=== PATIENT | female | born 1970 | race Hispanic/Latino ===

== ENCOUNTER 2016-11-16 16:18 | Emergency (ER) | payer OTHER ==
[2016-11-16 16:50] VITALS: BMI 60.2
[2016-11-16 16:56] VITALS: TEMP 97.7
[2016-11-16] MEDS ORDERED: TDAP Vaccine 0.5 mL Syr IM ONE (17:13)
--- NOTE | 2016-11-16 17:38 | ED PDOC ---
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 Patient states yesterday while shopping she scraped her finger on a metal object. She reports this morning upon walking she felt weak and had a subjective fever with chills. Patient notes pain and swelling to the finger has decreased after taking Advil. She notes some nausea, chronic shortness of breath, and chronic lower extremity edema but denies any vomiting or any other complaints at this time. Time/Duration: 24 hours Symptom Onset: Sudden Symptom Course: Unchanged Quality: Other ("pain") Activities at Onset: Rest Modifying Factors (Text): better with Advil Context: Other Associated Symptoms (Text): patient has nausea, fever, and chills Past Medical History - Provider Review Nursing Documentation Reviewed: Yes - Infectious Disease Hx of Infectious Diseases: None - Cardiac Hx Hypertension: Yes - Pulmonary Hx Respiratory Disorders: No - Neurological Hx Neurological Disorder: No - HEENT Hx HEENT Disorder: No - Renal Hx Renal Disorder: No - Endocrine/Metabolic Hx Endocrine Disorders: No - Hematological/Oncological Hx Anemia: Yes - Integumentary Hx Dermatological Disorder: Yes Other/Comment: b/l lower extremity edema. - Musculoskeletal/Rheumatological Hx Musculoskeletal Disorders: No - Gastrointestinal Hx Gastrointestinal Disorders: No - Genitourinary/Gynecological Hx Genitourinary Disorders: No - Psychiatric Hx Psychophysiologic Disorder: No Hx Substance Use: No - Surgical History Other/Comment: B/LLE DVT, IVC filter, PE - Anesthesia Hx Anesthesia: No Hx Anesthesia Reactions: No Hx Malignant Hyperthermia: No Family/Social History - Physician Review Nursing Documentation Reviewed: Yes Family/Social History: Unknown Family HX Smoking Status: Former Smoker Hx Alcohol Use: No Hx Substance Use: No Allergies/Home Meds Allergies/Adverse Reactions: Allergies Penicillins Allergy (Verified 11/16/16 16:50) RASH Review of Systems - Physician Review All systems were reviewed & negative as marked: Yes - Review of Systems Constitutional: Fevers, Other (chills) Respiratory: SOB (chronic) Gastrointestinal: Nausea Musculoskeletal: Other (right hand middle finger pain and swelling) Physical Exam Vital Signs Reviewed: Yes Vital Signs Temp Pulse Resp BP Pulse Ox 11/16/16 16:51 97.7 F 89 19 133/76 97 Temperature: Afebrile Blood Pressure: Normal Pulse: Regular Respiratory Rate: Normal Appearance: Positive for: Well-Appearing, Non-Toxic, Comfortable, Other ( morbidly obese) Pain Distress: None Mental Status: Positive for: Alert and Oriented X 3 - Systems Exam Head: Present: Atraumatic, Normocephalic Pupils: Present: PERRL Conjunctiva: Present: Normal Mouth: Present: Moist Mucous Membranes Neck: Present: Normal Range of Motion Respiratory/Chest: Present: Clear to Auscultation, Good Air Exchange. No: Respiratory Distress, Accessory Muscle Use Cardiovascular: Present: Regular Rate and Rhythm, Normal S1, S2. No: Murmurs Abdomen: Present: Normal Bowel Sounds. No: Tenderness, Distention, Peritoneal Signs Back: Present: Normal Inspection Upper Extremity: Present: Normal ROM, NORMAL PULSES, Neurovascularly Intact. No : Cyanosis, Edema, Tenderness, Erythema, Temperature Abnormalties Lower Extremity: Present: Edema (lymphedema bilaterally) Neurological: Present: GCS=15, CN II-XII Intact, Speech Normal Skin: Present: Warm, Dry, Normal Color. No: Rashes Psychiatric: Present: Alert, Oriented x 3, Normal Insight, Normal Concentration Medical Decision Making ED Course and Treatment: 11/16/16 17:42 Impression: 46 year old female complains of middle finger pain of right hand. Differential Diagnosis included but are not limited to: fracture vs. musculoskeletal Plan: -- Right Hand X-ray -- Labs -- TDAP Vaccine -- Reassess and disposition Progress Notes: 11/16/16 19:22 Right hand x-ray: As read by me, no foreign body or fracture. 11/16/16 20:18 Patient with noted history. Vitals and labs are unremarkable. X-ray shows no FB or fx. Will give abx prophylaxis. Tetanus updated - ok for d/c. - Lab Interpretations Lab Results: 11/16/16 18:15 11/16/16 18:15 Lab Results 11/16/16 18:15: WBC 7.7, RBC 4.50, Hgb 12.3, Hct 37.9, MCV 84.2, MCH 27.3, MCHC 32.5, RDW 16.4 H, Plt Count 295, MPV 9.8, Gran % 77.7 H, Lymph % (Auto) 16.0 L, [place] % (Auto) 4.0, Eos % (Auto) 2.2, Baso % (Auto) 0.1, Gran # 5.97, Lymph # 1.2 , [place]eller # 0.3, Eos # 0.2, Baso # 0.01, Sodium 138, Potassium 4.3, Chloride 100, Carbon Dioxide 26, Anion Gap 16, BUN 13, Creatinine 0.7, Est GFR ( Amer) > 60, Est GFR (Non-Af Amer) > 60, Random Glucose 141 H, Calcium 9.7, Total Bilirubin 0.6, AST 36, ALT 38, Alkaline Phosphatase 124, Total Protein 8.6 H, Albumin 4.3, Globulin 4.2, Albumin/Globulin Ratio 1.0 L I have reviewed the lab results: Yes - RAD Interpretation Radiology Orders: 11/16/16 17:13 HAND RIGHT 3 VIEWS [RAD] Stat - Medication Orders Current Medication Orders: Discontinued Medications Tetanus/Reduced Diphtheria/Acell Pertussis (Boostrix Vaccine Inj) 0.5 ml IM .ONCE ONE Stop: 11/16/16 17:14 Last Admin: 11/16/16 18:18 Dose: 0.5 ML [facility] Immunization Data Document 11/16/16 18:18 HI (Rec: 11/16/16 18:18 HI [id number]) Immunization Data Vaccine Lot Number [id number] Vaccine Expiration Date 10/28/18 Site Given Right Arm - Scribe Statement The provider has reviewed the documentation as recorded by the Shantal Hawkins training under Joy Hanna All medical record entries made by the Shantal were at my direction and personally dictated by me. I have reviewed the chart and agree that the record accurately reflects my personal performance of the history, physical exam, medical decision making, and the department course for this patient. I have also personally directed, reviewed, and agree with the discharge instructions and disposition. Disposition/Present on Arrival - Present on Arrival Any Indicators Present on Arrival: No History of DVT/PE: No History of Uncontrolled Diabetes: No Urinary Catheter: No History of Decub. Ulcer: No History Surgical Site Infection Following: None - Disposition Have Diagnosis and Disposition been Completed?: Yes Diagnosis: Injury of right hand Disposition: HOME/ ROUTINE Disposition Time: 20:20 Patient Plan: Discharge Condition: GOOD Additional Instructions: Take the antibiotics as prescribed. Follow up with your primary care doctor. Return to the emergency department if any new concerning symptoms. Prescriptions: Loratadine [Claritin] 1 tab PO DAILY PRN #30 tab PRN Reason: Allergy Symptoms Azithromycin [Zithromax] 2 tab PO DAILY #6 tab Referrals: PCP,NO [Primary Care Provider] - Follow up with primary
[2016-11-16 18:24] LABS: ADD MANUAL DIFF? NO
[2016-11-16 18:40] LABS: ALKALINE PHOSPHATASE 124 U/L (38-133); ALT/SGPT 38 U/L (7-56); AST/SGOT 36 U/L (15-39); BILIRUBIN,TOTAL 0.6 mg/dL (0.2-1.3); BLOOD UREA NITROGEN 13 mg/dL (7-21); CALCIUM 9.7 mg/dL (8.4-10.5); CARBON DIOXIDE 26 mmol/L (21-33); CHLORIDE 100 mmol/L (98-107); GFR AFRICAN-AMERICAN > 60; GLUCOSE,RANDOM 141 mg/dL (70-110); POTASSIUM 4.3 mmol/L (3.6-5.0); SODIUM 138 mmol/L (132-148); TOTAL PROTEIN 8.6 g/dL (5.8-8.3)
[2016-11-16 19:07] LABS: BASO # 0.01 K/mm3 (0.0-2.0); BASO % 0.1 % (0.0-3.0); EOS # 0.2 (0.0-0.7); EOS % 2.2 % (1.5-5.0); GRAN # 5.97 (1.4-6.5); GRAN % 77.7 % (50.0-68.0); HEMATOCRIT 37.9 % (36.0-48.0); LYMPH # 1.2 (1.2-3.4); MEAN CELL VOLUME 84.2 fL (80.0-105.0); MEAN CORPUSCULAR HEMOGLOBIN 27.3 pg (25.0-35.0); MEAN CORPUSCULAR HGB CONC 32.5 g/dl (31.0-37.0); MEAN PLATELET VOLUME 9.8 fl (7.0-11.0); MONO # 0.3 (0.1-0.6); PLATELET COUNT 295 10^3/uL (120.0-450.0); RED CELL DISTRIBUTION WIDTH 16.4 % (11.5-14.5); WHITE BLOOD COUNT 7.7 10^3/ul (4.5-11.0)
[2016-11-16 20:34] VITALS: BP 136/80; PULSE 84; RESP 16; O2SAT 98
--- NOTE | 2016-11-17 09:20 | RAD ---
PROCEDURE: Right Hand Radiographs. HISTORY: R hand puncture wound between 2nd/3rd finger COMPARISON: None. FINDINGS: BONES: Bone alignment and mineralization are normal. No fracture. JOINTS: Normal. No osteoarthritic changes. SOFT TISSUES: Normal. There is no radiopaque foreign body. OTHER FINDINGS: None. IMPRESSION: No acute fracture or dislocation. No radiopaque foreign body.
== END 2016-11-16 20:36 | disposition home or self-care (01) ==
LOC: ED 16:18
DX: S69.91XA Unspecified injury of right wrist, hand and finger(s), initial encounter (principal); W22.8XXA Striking against or struck by other objects, initial encounter; Y93.89 Activity, other specified; Y92.512 Supermarket, store or market as the place of occurrence of the external cause; Z23 Encounter for immunization

== ENCOUNTER 2016-12-26 20:42 | Emergency (ER) | payer OTHER ==
[2016-12-26 20:55] VITALS: BMI 71.6
[2016-12-26 20:59] VITALS: TEMP 98
[2016-12-26 23:03] LABS: ADD MANUAL DIFF? NO
[2016-12-26 23:09] LABS: BASO # 0.01 K/mm3 (0.0-2.0); BASO % 0.1 % (0.0-3.0); EOS # 0.2 (0.0-0.7); EOS % 2.3 % (1.5-5.0); GRAN % 82.7 % (50.0-68.0); HEMATOCRIT 37.4 % (36.0-48.0); LYMPH # 1.1 (1.2-3.4); LYMPH % 11.8 % (22.0-35.0); MEAN CELL VOLUME 85.6 fL (80.0-105.0); MEAN CORPUSCULAR HEMOGLOBIN 28.1 pg (25.0-35.0); MEAN CORPUSCULAR HGB CONC 32.9 g/dl (31.0-37.0); MEAN PLATELET VOLUME 9.4 fl (7.0-11.0); MONO # 0.3 (0.1-0.6); MONO % 3.1 % (1.0-6.0); PLATELET COUNT 284 10^3/uL (120.0-450.0); RED CELL DISTRIBUTION WIDTH 15.5 % (11.5-14.5); WHITE BLOOD COUNT 9.6 10^3/ul (4.5-11.0)
[2016-12-26 23:35] LABS: ALB/GLOB RATIO 1.1 (1.1-1.8); ALKALINE PHOSPHATASE 106 U/L (38-133); ALT/SGPT 40 U/L (7-56); AST/SGOT 38 U/L (15-39); BILIRUBIN,TOTAL 0.9 mg/dL (0.2-1.3); BLOOD UREA NITROGEN 16 mg/dL (7-21); CALCIUM 9.6 mg/dL (8.4-10.5); CARBON DIOXIDE 28 mmol/L (21-33); CHLORIDE 98 mmol/L (98-107); GFR AFRICAN-AMERICAN > 60; GLUCOSE,RANDOM 173 mg/dL (70-110); MAGNESIUM 1.6 mg/dL (1.7-2.2); POTASSIUM 3.9 mmol/L (3.6-5.0); SODIUM 136 mmol/L (132-148); TOTAL PROTEIN 8.1 g/dL (5.8-8.3)
[2016-12-26 23:47] LABS: TROPONIN I < 0.01 ng/mL
--- NOTE | 2016-12-27 | ED PDOC ---
Arrival/HPI - General Chief Complaint: Lower Extremity Problem/Injury Time Seen by Provider: 12/26/16 21:35 Historian: Patient - History of Present Illness Narrative History of Present Illness (Text): 12/27/16 00:04 A 46 year old female, obese, presents to the emergency department complaining of increasing leg pain and swelling over the past several days. Patient denies chest pain, shortness of breath, fever, cough or any other complaints at this time. Patient has a history of DVT in the past. Patient reports is non compliant with Xarelto for 7 months. Time/Duration: < week Symptom Onset: Sudden Symptom Course: Unchanged Activities at Onset: Rest Context: Home Associated Symptoms (Text): none Past Medical History - Provider Review Nursing Documentation Reviewed: Yes - Infectious Disease Hx of Infectious Diseases: None - Cardiac Hx Hypertension: Yes - Pulmonary Hx Respiratory Disorders: Yes Other/Comment: "spots in the lungs" - Neurological Hx Neurological Disorder: No - HEENT Hx HEENT Disorder: No - Renal Hx Renal Disorder: No - Endocrine/Metabolic Hx Endocrine Disorders: No - Hematological/Oncological Hx Anemia: Yes Other/Comment: DVT - Integumentary Hx Dermatological Disorder: Yes Other/Comment: b/l lower extremity edema. - Musculoskeletal/Rheumatological Hx Musculoskeletal Disorders: No - Gastrointestinal Hx Gastrointestinal Disorders: No - Genitourinary/Gynecological Hx Genitourinary Disorders: No - Psychiatric Hx Psychophysiologic Disorder: No Hx Substance Use: No - Surgical History Other/Comment: B/LLE DVT, IVC filter, PE - Anesthesia Hx Anesthesia: Yes Hx Anesthesia Reactions: No Hx Malignant Hyperthermia: No Family/Social History - Physician Review Nursing Documentation Reviewed: Yes Family/Social History: No Known Family HX Smoking Status: Former Smoker Hx Alcohol Use: No Hx Substance Use: No Allergies/Home Meds Allergies/Adverse Reactions: Allergies Penicillins Allergy (Verified 11/16/16 16:50) RASH Review of Systems - Physician Review All systems were reviewed & negative as marked: Yes - Review of Systems Constitutional: absent: Fevers Respiratory: absent: SOB, Cough Cardiovascular: absent: Chest Pain Musculoskeletal: Other (leg pain and swelling) Physical Exam Vital Signs Reviewed: Yes Vital Signs Temp Pulse Resp BP Pulse Ox 12/27/16 01:10 95 H 18 128/85 98 12/26/16 20:57 98.0 F 109 H 20 121/85 96 Temperature: Afebrile Blood Pressure: Normal Pulse: Tachycardic Respiratory Rate: Normal Appearance: Positive for: Non-Toxic, Comfortable, Other (obese) Pain Distress: None Mental Status: Positive for: Alert and Oriented X 3 - Systems Exam Head: Present: Atraumatic, Normocephalic Pupils: Present: PERRL Extroacular Muscles: Present: EOMI Conjunctiva: Present: Normal Mouth: Present: Moist Mucous Membranes Neck: Present: Normal Range of Motion Respiratory/Chest: Present: Clear to Auscultation, Good Air Exchange. No: Respiratory Distress, Accessory Muscle Use Cardiovascular: Present: Tachycardic Abdomen: Present: Normal Bowel Sounds. No: Tenderness, Distention, Peritoneal Signs Back: Present: Normal Inspection Upper Extremity: Present: Normal Inspection. No: Cyanosis, Edema Lower Extremity: Present: Edema (positive), Other (chronic skin changes; good capillary refill; good distal pulses) Neurological: Present: GCS=15, CN II-XII Intact, Speech Normal Skin: Present: Warm, Dry, Normal Color. No: Rashes Psychiatric: Present: Alert, Oriented x 3, Normal Insight, Normal Concentration Medical Decision Making ED Course and Treatment: 12/26/16 23:55 Impression: A 46 year old female with leg pain and swelling. Differential Diagnosis included but are not limited to: Plan: -- EKG -- chest xray -- US lower extremity -- labs -- Urinalysis -- Toradol -- Reassess and disposition Prior Visits: Notes and results from previous visits were reviewed. Patient last reported to the emergency department on 11/16/16 for evaluation of pain and swelling of the right middle finger. Patient was discharged and advised to follow up with PMD and to take antibiotics as prescribed. Progress Notes: EKG: Ordered, reviewed, and independently interpreted the EKG. Rate : 97 BPM Rhythm : NSR Interpretation : Normal axis, normal intervals Comparison : No previous EKG for comparison. - Lab Interpretations Lab Results: 12/26/16 22:55 12/26/16 22:55 Lab Results 12/26/16 22:55: Sodium 136, Potassium 3.9, Chloride 98, Carbon Dioxide 28, Anion Gap 14, BUN 16, Creatinine 0.8, Est GFR ( Amer) > 60, Est GFR (Non- Af Amer) > 60, Random Glucose 173 H, Calcium 9.6, Magnesium 1.6 L, Total Bilirubin 0.9, AST 38, ALT 40, Alkaline Phosphatase 106, Lactate Dehydrogenase 428, Total Creatine Kinase 48, Troponin I < 0.01, NT-Pro-B Natriuret Pep 20.8, Total Protein 8.1, Albumin 4.3, Globulin 3.8, Albumin/Globulin Ratio 1.1 12/26/16 22:55: WBC 9.6 D, RBC 4.37, Hgb 12.3, Hct 37.4, MCV 85.6, MCH 28.1, MCHC 32.9, RDW 15.5 H, Plt Count 284, MPV 9.4, Gran % 82.7 H, Lymph % (Auto) 11.8 L, [place] % (Auto) 3.1, Eos % (Auto) 2.3, Baso % (Auto) 0.1, Gran # 7.90 H, Lymph # 1.1 L, [place] # 0.3, Eos # 0.2, Baso # 0.01 I have reviewed the lab results: Yes - RAD Interpretation Radiology Orders: 12/26/16 21:40 CHEST PORTABLE [RAD] Stat 12/26/16 22:22 DUPLEX LOWER EXTRM VEIN BILAT [US] Stat - EKG Interpretation Interpreted by ED Physician: Yes Type: 12 lead EKG - Medication Orders Current Medication Orders: Discontinued Medications Ketorolac Tromethamine (Toradol) 30 mg IVP STAT STA Stop: 12/26/16 22:29 Last Admin: 12/27/16 01:09 Dose: 30 mg - Scribe Statement The provider has reviewed the documentation as recorded by the Shantal Hawkins Provider Scribe Attestation: All medical record entries made by the Shantal were at my direction and personally dictated by me. I have reviewed the chart and agree that the record accurately reflects my personal performance of the history, physical exam, medical decision making, and the department course for this patient. I have also personally directed, reviewed, and agree with the discharge instructions and disposition. Disposition/Present on Arrival - Present on Arrival Any Indicators Present on Arrival: No History of DVT/PE: No History of Uncontrolled Diabetes: No Urinary Catheter: No History of Decub. Ulcer: No History Surgical Site Infection Following: None - Disposition Have Diagnosis and Disposition been Completed?: Yes Diagnosis: Lower extremity edema Disposition: HOME/ ROUTINE Disposition Time: 00:20 Condition: GOOD Discharge Instructions (ExitCare): Leg Edema (ED) Additional Instructions: Thank you for letting us take care of you today. Your provider was Dr. Bah. You were treated for leg edema. The emergency medical care you received today was directed at your acute symptoms. If you were prescribed any medication, please fill it and take as directed. It may take several days for your symptoms to resolve. Return to the Emergency Department if your symptoms worsen, do not improve, or if you have any other problems. Please contact your doctor or call one of the physicians/clinics you have been referred to that are listed on the Patient Visit Information form that is included in your discharge packet. Bring any paperwork you were given at discharge with you along with any medications you are taking to your follow up visit. Our treatment cannot replace ongoing medical care by a primary care provider (PCP) outside of the emergency department. Thank you for allowing the [facility]ulin team to be part of your care today. Follow up with your doctor in 3-4 days for re-evaluation. Prescriptions: Bumetanide [Bumex] 1 mg PO DAILY #14 tab Referrals: [facility], [Family Provider] - Follow up with primary
[2016-12-27 01:11] VITALS: BP 128/85; PULSE 95; RESP 18; O2SAT 98
--- NOTE | 2016-12-27 12:58 | CARD ---
APPROVED REPORT EKG Measurement Heart [id number] <Conclusion> Normal sinus rhythm Minimal voltage criteria for LVH, may be normal variant Borderline ECG
--- NOTE | 2016-12-27 14:32 | RAD ---
HISTORY: leg swelling COMPARISON: No prior. FINDINGS: LUNGS: No active pulmonary disease. PLEURA: No significant pleural effusion identified, no pneumothorax apparent. CARDIOVASCULAR: Normal. OSSEOUS STRUCTURES: No significant abnormalities. VISUALIZED UPPER ABDOMEN: Normal. OTHER FINDINGS: None. IMPRESSION: No active disease.
--- NOTE | 2016-12-28 13:35 | US ---
HISTORY: Leg pain and swelling. Evaluate for DVT PHYSICIAN(S): Russell Nobles MD. TECHNIQUE: Duplex sonography and color-flow Doppler with graded compression were used to evaluate the deep venous systems of both lower extremities. The exam is extremely limited by body habitus and edema. The lower femoral veins and tibial veins are not adequately seen FINDINGS: The visualized deep venous systems of both lower extremities are sonographically normal and compressible. Normal wave forms and augmentation are seen. There is no sonographic evidence for deep venous thrombosis in the visualized segments of both lower extremities. IMPRESSION: No sonographic evidence for deep venous thrombosis in the visualized segments of both lower extremities. Very limited study
== END 2016-12-27 01:11 | disposition home or self-care (01) ==
LOC: ED 20:42
DX: R60.9 Edema, unspecified (principal); I10 Essential (primary) hypertension; Z86.718 Personal history of other venous thrombosis and embolism; Z79.01 Long term (current) use of anticoagulants; Z87.891 Personal history of nicotine dependence
CPT/HCPCS: 71010; 80053; 82550; 83615; 83735; 83880; 84484; 85025; 93005; 93970; 96374; 99284; J1885

== ENCOUNTER 2018-09-06 15:07 | Emergency (ER) | payer OTHER ==
[2018-09-06 17:27] VITALS: BMI 61.9
--- NOTE | 2018-09-06 17:41 | ED PDOC ---
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 patient states that a few days ago she had an itch in the area and scratched it. She states that following this an infection began to develop with a scab. She otherwise denies and f/c, n/v, CP, SOB, abdominal pain, extremity pain/weakness. 09/06/18 17:32 Time/Duration: Prior to Arrival, 1 week Symptom Onset: Gradual Symptom Course: Worsening Quality: Aching Severity Level: 5 Activities at Onset: Rest <Sandy Moncada - Last Filed: 09/06/18 18:05> <Jorge Beauchamp - Last Filed: 09/06/18 21:22> - General Chief Complaint: Lower Extremity Problem/Injury Time Seen by Provider: 09/06/18 17:12 Past Medical History - Provider Review Nursing Documentation Reviewed: Yes - Infectious Disease Hx of Infectious Diseases: None - Cardiac Hx Hypertension: Yes - Pulmonary Hx Respiratory Disorders: Yes Other/Comment: "spots in the lungs" - Neurological Hx Neurological Disorder: No - HEENT Hx HEENT Disorder: No - Renal Hx Renal Disorder: No - Endocrine/Metabolic Hx Endocrine Disorders: No - Hematological/Oncological Hx Anemia: Yes Other/Comment: DVT - Integumentary Hx Dermatological Disorder: Yes Other/Comment: b/l lower extremity edema. - Musculoskeletal/Rheumatological Hx Musculoskeletal Disorders: No - Gastrointestinal Hx Gastrointestinal Disorders: No - Genitourinary/Gynecological Hx Genitourinary Disorders: No - Psychiatric Hx Psychophysiologic Disorder: No Hx Substance Use: No - Surgical History Other/Comment: B/LLE DVT, IVC filter, PE - Anesthesia Hx Anesthesia: Yes Hx Anesthesia Reactions: No Hx Malignant Hyperthermia: No <Sandy Moncada - Last Filed: 09/06/18 18:05> Family/Social History - Physician Review Nursing Documentation Reviewed: Yes Family/Social History: Unknown Family HX Smoking Status: Former Smoker Hx Alcohol Use: No Hx Substance Use: No <Sandy Moncada - Last Filed: 09/06/18 18:05> Allergies/Home Meds <Sandy Moncada - Last Filed: 09/06/18 18:05> <Jorge Beauchamp - Last Filed: 09/06/18 21:22> Allergies/Adverse Reactions: Allergies Penicillins Allergy (Verified 09/06/18 20:17) RASH Review of Systems - Physician Review All systems were reviewed & negative as marked: Yes - Review of Systems Constitutional: absent: Fatigue, Fevers Respiratory: absent: SOB Cardiovascular: absent: Chest Pain Gastrointestinal: absent: Abdominal Pain, Constipation, Diarrhea, Nausea, Vomiting Musculoskeletal: absent: Arthralgias, Joint Swelling Skin: Skin Lesions (1.5 cm x 1.5 cm wound right lateral calf). absent: Rash Neurological: Headache. absent: Dizziness, Speech Changes, Facial Droop Psychiatric: Anxiety <Sandy Moncada - Last Filed: 09/06/18 18:05> Physical Exam Vital Signs Reviewed: Yes Appearance: Positive for: Well-Appearing, Non-Toxic, Comfortable Pain Distress: Mild Mental Status: Positive for: Alert and Oriented X 3 - Systems Exam Head: Present: Atraumatic, Normocephalic Extroacular Muscles: Present: EOMI Mouth: Present: Moist Mucous Membranes Neck: Present: Normal Range of Motion Respiratory/Chest: Present: Clear to Auscultation, Good Air Exchange. No: Respiratory Distress, Accessory Muscle Use Cardiovascular: Present: Regular Rate and Rhythm, Normal S1, S2. No: Murmurs Abdomen: Present: Normal Bowel Sounds. No: Tenderness, Distention, Peritoneal Signs Upper Extremity: Present: Normal Inspection. No: Cyanosis, Edema Lower Extremity: Present: Normal Inspection, NORMAL PULSES, Other (1.5 cm x1.5 cm wound to right lateral calf with area of fibrinous exudate and central scab, surrounding erythema and induration no fluctuance). No: Edema, CALF TENDERNESS Neurological: Present: GCS=15, CN II-XII Intact, Speech Normal Skin: Present: Warm, Dry, Erythematous, Induration, Other (1.5 cm x1.5 cm wound to right lateral calf with area of fibrinous exudate and central scab, surrounding erythema and induration no fluctuance). 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 Discussion on the etiology for cause of the calf wound with emphasis on chronicity and need for continuous dressings made aware to patient. She acknowledges and is in agreement for plan to discharge at this time. Scripts provided and opportunity for answering questions given. She is stable for discharge. - Lab Interpretations Lab Results: PT 12.8 SECONDS (9.4-12.5) H 09/06/18 18:00 INR 1.15 09/06/18 18:00 APTT 42.5 Seconds (26.9-38.3) H 09/06/18 18:00 Total Bilirubin 0.4 mg/dL (0.2-1.3) 09/06/18 18:00 AST 27 U/L (14-36) 09/06/18 18:00 ALT 27 U/L (7-56) 09/06/18 18:00 Alkaline Phosphatase 120 U/L (38-126) 09/06/18 18:00 Total Protein 8.7 g/dL (5.8-8.3) H 09/06/18 18:00 Albumin 4.5 g/dL (3.0-4.8) 09/06/18 18:00 Globulin 4.2 gm/dL 09/06/18 18:00 Albumin/Globulin Ratio 1.1 (1.1-1.8) 09/06/18 18:00 09/06/18 18:00 09/06/18 18:00 Lab Results 09/06/18 18:00: Sodium 137, Potassium 4.5, Chloride 101, Carbon Dioxide 28, A nion Gap 12, BUN 16, Creatinine 0.7, Est GFR ( Amer) > 60, Est GFR (Non- Af Amer) > 60, Random Glucose 91, Calcium 9.9, Total Bilirubin 0.4, AST 27, ALT 27, Alkaline Phosphatase 120, Total Protein 8.7 H, Albumin 4.5, Globulin 4.2, Albumin/Globulin Ratio 1.1 09/06/18 18:00: PT 12.8 H, INR 1.15, APTT 42.5 H 09/06/18 18:00: WBC 9.6, RBC 4.35, Hgb 11.4 L, Hct 36.9, MCV 84.8, MCH 26.2, MCHC 30.9 L, RDW 16.0 H, Plt Count 295, MPV 9.8, Neut % (Auto) 79.0 H, Lymph % (Auto) 13.9 L, [place] % (Auto) 4.2, Eos % (Auto) 2.8, Baso % (Auto) 0.1, Lymph # (Auto) 1.3, [place] # (Auto) 0.4, Eos # (Auto) 0.3, Baso # (Auto) 0.01, Absolute Neuts (auto) 7.56 H I have reviewed the lab results: Yes - RAD Interpretation Radiology Orders: 09/06/18 17:30 DUPLEX LOWER EXTRM VEIN BILAT [US] Stat - Medication Orders Current Medication Orders: Discontinued Medications Acetaminophen (Tylenol 325mg Tab) 650 mg PO STAT STA Stop: 09/06/18 17:32 Last Admin: 09/06/18 18:24 Dose: 650 mg <Ángel Beauchampyl - Last Filed: 09/06/18 21:22> Disposition/Present on Arrival - Present on Arrival History of DVT/PE: No History of Uncontrolled Diabetes: No Urinary Catheter: No History Surgical Site Infection Following: None <Sandy Moncada - Last Filed: 09/06/18 18:05> - Present on Arrival Any Indicators Present on Arrival: No - Disposition Have Diagnosis and Disposition been Completed?: Yes Disposition Time: 19:24 Patient Plan: Discharge <Ángel Beauchampyl - Last Filed: 09/06/18 21:22> - Disposition Diagnosis: Cellulitis Disposition: HOME/ ROUTINE Patient Problems: Current Active Problems Problem Status Onset Cellulitis Acute Condition: STABLE Discharge Instructions (ExitCare): Cellulitis (ED) Print Language: [place] Additional Instructions: Please follow up with your PCP in 1 week Please take medications as prescribed If symptoms worsen(purulence, fevers, redness, persistent pain despite analgesics), please return back to the ER promptly Prescriptions: RX: Clindamycin [Cleocin] 300 mg PO TID 10 Days #30 cap RX: Mupirocin 2% Ointment [Bactroban Ointment] 22 applic EXT BID #1 tube Referrals: Ernesto Leslie MD [Family Provider] - Follow up with primary Forms: [employer] (Bengali)
[2018-09-06 18:07] LABS: BASO # 0.01 K/mm3 (0.0-2.0); BASO % 0.1 % (0.0-3.0); EOS # 0.3 (0.0-0.7); EOS % 2.8 % (1.5-5.0); HEMOGLOBIN 11.4 g/dL (12.0-16.0); LYMPH # 1.3 (1.2-3.4); LYMPH % 13.9 % (22.0-35.0); MEAN CELL VOLUME 84.8 fl (80.0-105.0); MEAN CORPUSCULAR HEMOGLOBIN 26.2 pg (25.0-35.0); MEAN CORPUSCULAR HGB CONC 30.9 g/dl (31.0-37.0); MEAN PLATELET VOLUME 9.8 fl (7.0-11.0); MONO # 0.4 (0.1-0.6); MONO % 4.2 % (1.0-6.0); RBC 4.35 10^6/uL (3.5-6.1); WHITE BLOOD COUNT 9.6 10^3/uL (4.5-11.0)
[2018-09-06 18:16] LABS: INR 1.15; PARTIAL THROMBOPLASTIN TIME 42.5 Seconds (26.9-38.3); PROTHROMBIN TIME 12.8 SECONDS (9.4-12.5)
[2018-09-06 18:18] LABS: ALB/GLOB RATIO 1.1 (1.1-1.8); ALBUMIN 4.5 g/dL (3.0-4.8); ALT/SGPT 27 U/L (7-56); AST/SGOT 27 U/L (14-36); BLOOD UREA NITROGEN 16 mg/dL (7-21); CALCIUM 9.9 mg/dL (8.4-10.5); GFR NON-AFRICAN AMERICAN > 60
[2018-09-06 19:44] VITALS: BP 116/96; RESP 18
--- NOTE | 2018-09-06 20:00 | US ---
HISTORY: Leg pain and swelling. Evaluate for DVT PHYSICIAN(S): Russell Nobles MD. TECHNIQUE: Duplex sonography and color-flow Doppler with graded compression were used to evaluate the deep venous systems of both lower extremities. Anisa is stream limited due to body habitus and edema. The lower femoral veins and tibial veins are not adequately seen FINDINGS: The visualized deep venous systems of both lower extremities are sonographically normal and compressible. Normal wave forms and augmentation are seen. There is no sonographic evidence for deep venous thrombosis in the visualized segments of both lower extremities. IMPRESSION: No sonographic evidence for deep venous thrombosis in the visualized segments of both lower extremities. Very limited study
[2018-09-06 23:33] VITALS: PULSE 70; O2SAT 98
== END 2018-09-06 23:35 | disposition home or self-care (01) ==
LOC: ED 15:07
DX: L03.116 Cellulitis of left lower limb (principal); E11.9 Type 2 diabetes mellitus without complications; I10 Essential (primary) hypertension; Z87.891 Personal history of nicotine dependence